=== PATIENT | female | born 1965 | race Caucasian/White ===

== ENCOUNTER 2020-11-09 08:53 | Emergency (ER) | payer MEDICARE, MEDICAID ==
[~2020-11-09] VITALS: Ht 172.7 cm; Wt 132.7 kg
[2020-11-09 10:11] LABS: BASO # 0.1 10^3/uL (0.0-0.2); BASO % 0.5 % (0.0-1.0); EOS % 0.1 % (0.0-3.0); HEMATOCRIT 34.6 % (36.0-47.0); HEMOGLOBIN 11.2 g/dl (12.0-15.5); LYMPH # 1.3 10^3/uL (1.5-5.0); LYMPH % 12.2 % (24.0-44.0); MEAN CORPUSCULAR HEMOGLOBIN 28.1 pg (27.0-33.0); MEAN CORPUSCULAR HGB CONC 32.4 g/dl (32.0-36.5); MEAN CORPUSCULAR VOLUME 86.9 fl (80.0-96.0); MONO % 10.1 % (2.0-8.0); NEUTROPHILS # 7.9 10^3/uL (1.5-8.5); NEUTROPHILS % 76.7 % (36.0-66.0); PLATELET COUNT, AUTOMATED 193 10^3/uL (150-450); RED BLOOD COUNT 3.98 10^6/uL (4.00-5.40); WHITE BLOOD COUNT 10.2 10^3/uL (4.0-10.0)
[2020-11-09] MEDS ORDERED: ACETAMINOPHEN 500 MG TAB PO ONE (10:20)
[2020-11-09 10:33] LABS: ERYTHROCYTE SEDIMENTATION RATE 62 mm/hr (0-30)
[2020-11-09 10:34] LABS: ALBUMIN 3.2 GM/DL (3.2-5.2); BILIRUBIN,TOTAL 0.9 MG/DL (0.2-1.0); C REACTIVE PROTEIN QUANTITATIV 7.98 MG/DL (0.00-0.30); CALCIUM LEVEL 8.3 MG/DL (8.5-10.1); CREATININE FOR GFR 1.18 MG/DL (0.55-1.30); GLOMERULAR FILTRATION RATE 50.3 (>51); POTASSIUM SERUM 3.7 MEQ/L (3.5-5.1); TOTAL PROTEIN 7.3 GM/DL (6.4-8.2)
--- NOTE | 2020-11-09 10:41 | REP ---
INDICATION: cough COMPARISON: None. TECHNIQUE: Portable AP view of the chest FINDINGS: The mediastinum and cardiac silhouette are within normal limits for portable technique. Evidence for prior sternotomy. The lung [place] are clear without acute consolidation, effusion, or pneumothorax. Skeletal structures are intact. IMPRESSION: No acute cardiopulmonary process appreciated. <Electronically signed by Mauricio Valle > 11/09/20 1037
[2020-11-09 10:49] LABS: RSV AMPLIFICATION NEGATIVE (NEGATIVE)
[2020-11-09] MEDS ORDERED: SERT-141 PO (11:11)
[2020-11-09] MEDS ORDERED: GABA-283 PO (11:11)
[2020-11-09] MEDS ORDERED: MONT10TA10 PO (11:11)
[2020-11-09] MEDS ORDERED: OXYB10TA23 PO (11:11)
[2020-11-09] MEDS ORDERED: BUTA-198 PO (11:11)
[2020-11-09] MEDS ORDERED: CETI5SOL3 PO (11:11)
[2020-11-09] MEDS ORDERED: ERGO2500 PO (11:11)
[2020-11-09] MEDS ORDERED: cefTRIAXone SOD 1 GM in D5W MINI-BAG PLUS 50 ML IV ONE (13:30)
[2020-11-09] MEDS ORDERED: cefTRIAXone SOD 1GM VIAL (J0696 PER 250MG) IM ONE (13:55)
[2020-11-09] MEDS ORDERED: LIDOCAINE 1% SDV 5ML VIAL DILUENT ONE (13:55)
[2020-11-09 14:16] VITALS: BP 139/63
[2020-11-09] MEDS ORDERED: CIPR500T39 PO (14:29)
== END 2020-11-09 15:13 | disposition home or self-care (01) ==
LOC: M ED 08:53
DX: N39.0 Urinary tract infection, site not specified (principal); N10 Acute pyelonephritis; E11.9 Type 2 diabetes mellitus without complications; J45.909 Unspecified asthma, uncomplicated; Z88.5 Allergy status to narcotic agent; Z88.2 Allergy status to sulfonamides
CPT/HCPCS: 71045; 80053; 81001; 83605; 85025; 85652; 86140; 87040; 87077; 87088; 87186; 87631; 96372; 99284; J0696

== ENCOUNTER → 2021-02-04 | Outpatient (REF) | payer MEDICARE, MEDICAID ==
[~2021-02-04] MED LIST: BUTA-198 PO; CETI5SOL3 PO; CIPR500T39 PO; ERGO2500 PO; GABA-283 PO; MONT10TA10 PO; OXYB10TA23 PO; SERT-141 PO
[2021-02-04 13:43] LABS: APPEARANCE, URINE HAZY (CLEAR); BACTERIA, URINE AUTO NEGATIVE (NEGATIVE); BILIRUBIN, URINE AUTO NEGATIVE (NEGATIVE); BLOOD, URINE BLOOD 2+ (NEGATIVE); COLOR, URINE YELLOW (YELLOW); GLUCOSE, URINE (UA) AUTO NEGATIVE (NEGATIVE); KETONE, URINE AUTO NEGATIVE (NEGATIVE); LEUKOCYTE ESTERASE, URINE AUTO NEGATIVE (NEGATIVE); MUCUS, URINE SMALL (NEGATIVE); NITRITE, URINE AUTO NEGATIVE (NEGATIVE); PROTEIN, URINE AUTO NEGATIVE (NEGATIVE); RBC, URINE AUTO 0 /HPF (0-3); SPECIFIC GRAVITY URINE AUTO 1.016 (1.002-1.035); SQUAMOUS EPITHELIAL CELL UR AU 7 /HPF (0-6); UROBILINOGEN, URINE AUTO 0.2 mg/dL (0.0-2.0); WBC, URINE AUTO 2 /HPF (0-3)
== END ==
LOC: M SMT 13:09
PROVIDERS: ATTEND Nurse Practitioner Women's Health
DX: R35.0 Frequency of micturition (principal)